=== PATIENT | female | born 1985 | race Hispanic/Latino ===

== ENCOUNTER 2016-06-10 20:51 | Emergency (ER) | payer OTHER ==
[~2016-06-10] VITALS: Ht 154.9 cm; Wt 79.4 kg
[~2016-06-10 20:51] MED LIST: ALBUTEROL0.09 MG/A1 INH; IBU800 MG PO; METHYLERGONOVI0.2 MG PO; NOR-QD0.35 MG PO; PERCOCET 325 MG1 TA2 PO; VICODIN5-300 PO
--- NOTE | 2016-06-10 22:11 | ED INFLUENZA/URI COMPLAINT ---
History of Present Illness General Chief Complaint: General Adult Stated Complaint: BRONCHITIS FEW WEEKS AGO, BAD COUGH DIFF BREATHING Source: patient, family, old records Exam Limitations: no limitations Vital Signs & Intake/Output Vital Signs & Intake/Output Vital Signs Date Time Temp Pulse Resp B/P B/P Pulse O2 O2 Flow FiO2 Mean Ox Delivery Rate 06/10 2325 97.9 78 28 125/72 98 06/10 2153 98.9 109 18 135/78 100 Room Air ED Intake and Output 06/11 0000 06/10 1200 Intake Total Output Total Balance Patient 175 lb Weight Weight Reported by Patient Measurement Method Allergies Coded Allergies: Iodinated Contrast Media - Oral and (Intermediate, ITCHY 06/10/16) Reconcile Medications Albuterol Sulfate (Proair Hfa) 90 MCG HFA.AER.AD 2 PUF INH Q4-6 PRN PRN SOB ( Reported) Albuterol Sulfate 2.5 MG/3 ML (0.083 %) VIAL.NEB 1 Vial INH/DEBBIE Q4P PRN WHEEZING Azithromycin (Zithromax) 250 MG TABLET 1 DP PO AD BRONCHITIS 2 the first day followed by 1 for days 2-5 Codeine Phosphate/Guaifenesi (Guaifen-Codeine 100-10 MG/5 Ml) 10 MG-100 MG/5 ML LIQUID 10 ML PO Q6HR PRN COUGH Metformin HCl (Metformin HCl ER) 500 MG TAB.ER.24H 1 TAB PO BID DM (Reported) Mometasone Furoate (Nasonex) 50 MCG SPRAY.PUMP 2 SPRAY NASB DAILY RHINTIS [NEBULIZER MACHINE] USE DIRECTED Norethindrone (Nor-Qd) 0.35 MG TAB 1 TAB PO DAILY BCP (Reported) Phenylephrine HCl/Prometh HCl (Promethazine Vc Syrup) 5 MG-6.25 MG/5 ML SYRUP 5 ML PO Q6 PRN COUGH (Reported) Triage Note: PT TO ED FOR COUGH AND SINUS PRESSURE SINCE TUESDAY RECENTLY DX'ED WITH BRONCHITIES AND GIVEN AND FINISHED SCRIPTS FOR ABX AND PREDNISONE. DENIES FEVER. PT VOMITING AFTER "COUGHING FIT" IN TRIAGE. Triage Nurses Notes Reviewed? yes Onset: Abrupt Duration: week(s): (2), constant Timing: recent history Severity: moderate Severity Numbers: 6 Prior Episodes/Possible Cause: occassional episodes No Modifying Factors: none Associated Symptoms: cough, sinus infection : No Patient currently breastfeeds: No HPI: 31-year-old female nonsmoker presents emergency room complaining of a three-week history of nonproductive cough associated multiple episodes of posttussive vomiting right earache facial pressure sinus congestion. Patient was on a recent course of prednisone pro-air inhaler and cough medicine without improvement. She denies fevers chills. No sick contacts recent travel no chest pain or shortness of breath abdominal pain or diarrhea. She is otherwise without any complaints at this time no recent antibiotic use. (LAURYN HENDERSON) Past History Travel History Traveled to [place] past 21 day No Medical History Any Pertinent Medical History? see below for history Neurological: migraine EENT: NONE Cardiovascular: NONE Respiratory: asthma, RECENTLY TREATED FOR BRONCHITIS. sHE DID A 5 DAY TREATMENT OF PREDNISONE Gastrointestinal: NONE Hepatic: NONE Renal: NONE Musculoskeletal: NONE Psychiatric: anxiety Endocrine: NONE Blood Disorders: NONE Cancer(s): NONE MOLD CLOSER/Reproductive: PCOS ECTOPIC PREG Other Medical Hx: RECENT BRONCHITIS, S/P 5 DAY TX WITH STEROIDS. Surgical History Surgical History: N Psychosocial History What is your primary language Romansh Tobacco Use: Never used Daily Tobacco Use Amount/Type: =< 4 Cigarettes daily ETOH Use: occasional use Illicit Drug Use: denies illicit drug use Family History Hx Contributory? No (LAURYN HENDERSON) Review of Systems Review of Systems Constitutional: Reports: see HPI. All Other Systems: Reviewed and Negative Comments Review of systems: See HPI, All other systems negative. Constitutional, no chills no fever, no malaise HEENT: No visual changes no sore throat congestion, no ear pain Cardiovascular: No chest pain , no palpitation , no orthopnea Skin: no rashes, no change in skin Respiratory: No dyspnea cough no sputum no hemoptysis GI: No nausea vomiting, no diarrhea, no bloating/constipation : No dysuria No hematuria, no frequency, no discharge Muscle skeletal: No joint pain, no joint swelling, no back pain Neurologic: no headache Psych: No stress no depression,. Heme/endocrine: No bruising Immunology: No lymphadenopathy (LAURYN HENDERSON) Physical Exam Physical Exam General Appearance: well developed/nourished, no apparent distress, alert, awake Ears, Nose, Throat: normal ENT inspection, moist mucous membrane, Tympanic normal, pharynx normal Comments: Well-developed well-nourished patient in no apparent distress. Head/Face: Atraumatic, maxillary/frontal sinus tenderness, no facial swelling Eyes: PERRL, EOMI, no conjunctival injection. No nystagmus Ear:External auditory canal and Tympanic membranes clear, no erythema, no FB. Nose: atraumatic.Normal inspection: No bleeding, no septal hematoma Throat: Moist mucous membranes.Pharynx normal. No pharyngeal erythema/exudate seen. No stridor/drooling or assymetry. No swelling or edema. Neck: Supple, no lymphadenopathy, FROM Back: FROM Cardiovascular: Regular rate and rhythms no murmurs rubs Respiratory: Chest nontender.There were no bony deformities, no asymmetry. No respiratory distress. Patient speaking in full complete sentences. Breath sounds clear to auscultation bilaterally: NO W/R/R Extremities: full range of motion Neuro: awake, alert, and oriented to person, place and time. There were no obvious focal neurologic abnormalities. Skin: Warm & dry;No appreciable rash on exposed skin Psych: Mood affect normal, normal memory normal judgment. Core Measures Severe Sepsis Present: No Septic Shock Present: No (SAUL RENE,LAURYN) Progress Differential Diagnosis: influenza, pneumonia, pharyngitis, sinusitis, bronchitis , viral syndomre, uti, Plan of Care: Orders Procedure Date/time Status URINE 06/10 2218 Complete URINALYSIS 06/10 2218 Complete Current Medications Sig/Dixie Start time Last Medication Dose Stop Time Status Admin Guaifenesin/ 10 ML ONCE ONE 06/10 2229 CAN Dextromethorphan 06/10 2230 (Robitussin Dm) Laboratory Tests 06/10/16 2251: Urine Color YEL, Urine Clarity CLEAR, Urine pH 6.0, Ur Specific [place] 1.020, Urine Protein NEG, Urine Ketones NEG, Urine Nitrite NEG, Urine Bilirubin NEG, Urine Urobilinogen 0.2, Ur Leukocyte Esterase NEG, Ur Microscopic EXAM NOT REQUIRED, Urine Hemoglobin NEG, Urine Glucose NEG, Urine Test NEGATIVE Patient clinically appears well and nontoxic lungs are clear auscultation I discussed with the patient at length all of their results. I had an extensive conversation regarding need for close follow up with their primary care physician this week as well as return precautions. I answered all of their questions, they feel comfortable with the plan and follow-up care. I discussed the medications that they will receive with the patient. I gave them signs and symptoms that could indicate an adverse reaction. I have advised them to limit their activities until they can see how they respond to the medication. (LAURYN HENDERSON) Initial ED EKG: none (LAURYN HENDERSON) Departure Departure Time of Disposition: 2324 Disposition: HOME OR SELF CARE Condition: Stable Clinical Impression Primary Impression: Bronchitis Referrals: UNKNOWN (PCP/Family) Additional Instructions: Follow-up with your primary care physician this week. Robitussin with codeine as directed-this may make you drowsy use caution. Z-Tony as discussed, nasonex nasal spray, albuterol nebulizer as discussed. return anytime sooner with any concerns Zofran if needed for nausea. These prescriptions were sent to your pharmacy Departure Forms: Customer Survey General Discharge Information Prescriptions: Current Visit Scripts Codeine Phosphate/Guaifenesi (Guaifen-Codeine 100-10 MG/5 Ml) 10 ML PO Q6HR PRN COUGH #200 ML Mometasone Furoate (Nasonex) 2 SPRAY NASB DAILY #1 INHAL Albuterol Sulfate 1 Vial INH/DEBBIE Q4P PRN WHEEZING #50 Vial Azithromycin (Zithromax) 1 DP PO AD #6 TAB 2 the first day followed by 1 for days 2-5 [NEBULIZER MACHINE] #1 USE DIRECTED (LAURYN HENDERSON) PA/HISTOLOGIC AIDE Co-Sign Statement Statement: ED Attending supervision documentation- [] I saw and evaluated the patient. I have also reviewed all the pertinent lab results and diagnostic results. I agree with the findings and the plan of care as documented in the PA's/HISTOLOGIC AIDE's documentation. x I have reviewed the ED Record and agree with the PA's/HISTOLOGIC AIDE's documentation. [] Additions or exceptions (if any) to the PAs/HISTOLOGIC AIDE's note and plan are summarized below: [] (JEREMIAS BROWN,RAMBO)
[2016-06-10] MEDS ORDERED: PROAIR HFA8.5 GM INH (22:50)
[2016-06-10] MEDS ORDERED: METFORMIN HCL500 M4 PO (22:51)
[2016-06-10] MEDS ORDERED: PROMETHAZINE V473 M1 PO (22:51)
[2016-06-10 23:25] VITALS: BP 125/72
[2016-06-10] MEDS ORDERED: NEBULIZER MACHINE (23:27)
[2016-06-10] MEDS ORDERED: NASONEX17 GM NASB (23:27)
[2016-06-10] MEDS ORDERED: ZITHROMAX250 M2 PO (23:27)
[2016-06-10] MEDS ORDERED: GUAIFEN-CODEIN118 M1 PO (23:27)
[2016-06-10] MEDS ORDERED: ALBUTEROL2.5 MG/3 M INH/SOL (23:27)
[2016-08-12] MEDS ORDERED: ADVAIR 100-501 EACH INH (13:51)
[2016-08-12] MEDS ORDERED: PROAIR HFA8.5 GM INH (13:52)
[2016-08-12] MEDS ORDERED: ALBUTEROL2.5 MG/3 M INH/SOL (13:52)
[2016-08-12] MEDS ORDERED: NEXPLANON68 M1 (13:55)
[2016-08-12] MEDS ORDERED: VITAMIN B-121000 MC3 PO (13:55)
[2016-08-12] MEDS ORDERED: ALL DAY ALLERGY10 MG PO (13:56)
[2016-08-12] MEDS ORDERED: ZOFRAN ODT4 M1 SL (14:00)
[2016-08-12] MEDS ORDERED: BENTYL10 M1 PO (14:00)
== END 2016-06-10 23:31 ==
LOC: ERH 20:51
DX: J40 Bronchitis, not specified as acute or chronic (principal); Z72.0 Tobacco use
CPT/HCPCS: 81003; 81025; J3101